=== PATIENT | male | born 1990 | race Caucasian/White ===

== ENCOUNTER 2021-05-16 15:52 | Emergency (ER) | payer MEDICAID ==
[~2021-05-16] VITALS: Ht 172.7 cm; Wt 70.0 kg
[2021-05-16 16:19] VITALS: BP 136/83
--- NOTE | 2021-05-16 16:31 | ED EENT ---
History of Present Illness General Chief Complaint: Dental Problems/Pain Stated Complaint: DENTAL PAIN Nursing Triage Note: Pt ambulatory into ER with complaint of Lower Left Dental Pain x4 days. Pt states that he is new here from [place], and hasn't established with a dentist. Pt rates pain at a 6/10. Source: patient Exam Limitations: no limitations History of Present Illness Date Seen by Provider: May 16, 2021 Time Seen by Provider: 16:20 Initial Comments This 30-year-old gentleman presents to the emergency room with about 4 days of dental pain on the left anterior mandibular area. He reports there was an abscess in this region that ruptured and drained. He is still having significant pain not adequately controlled by Tylenol and ibuprofen. He has also tried topical anesthetics such as the counter. He denies fever. He is moving to this area and does not yet have a dentist here. Allergies and Home Medications Patient Home Medication List Home Medication List Reviewed: Yes Amoxicillin (Amoxicillin) 500 Mg Capsule, 1,000 MG PO BID Prescribed by: ABHI CAMPO on 05/16/21 1632 Tramadol HCl (Ultram) 50 Mg Tablet, 50 MG PO Q6H PRN for PAIN-BREAKTHROUGH Prescribed by: ABHI CAMPO on 05/16/21 1633 Review of Systems Review of Systems Constitutional: no symptoms reported Eyes: No Symptoms Reported Ears: No Symptoms Reported Nose: no symptoms reported Mouth: see HPI Throat: no symptoms reported Respiratory: no symptoms reported Cardiovascular: no symptoms reported Gastrointestinal: no symptoms reported Musculoskeletal: no symptoms reported Neurological: No Symptoms Reported Past Pgtnsrr-Dcuumn-Ncvias Hx Patient Social History Tobacco Use?: No Use of E-Cig and/or Vaping dev: No Substance use?: No Alcohol Use?: No Pt feels they are or have been: No Immunizations Up To Date Influenza Vaccine Up-to-Date: No; Not Current Past Medical History Surgeries: No (None reported) Respiratory: No Cardiac: No Neurological: No Genitourinary: No Gastrointestinal: No Musculoskeletal: No Endocrine: No HEENT: No Cancer: No Psychosocial: No Physical Exam Vital Signs Vital Signs - First Documented 05/16/21 16:19 Temp 36.4 Pulse 81 Resp 16 B/P (MAP) 136/83 (100) Pulse Ox 99 O2 Delivery Room Air Height, Weight, BMI Height: '" Weight: lbs. oz. kg; 23.00 BMI Method: General Appearance: WD/WN, no apparent distress Eyes: bilateral eye normal inspection Ears: bilateral ear auricle normal, bilateral ear canal normal, bilateral ear TM normal Nose: normal inspection Mouth/Throat: pharynx normal, other (Multiple absent teeth. Tenderness and mild erythema of the gingiva surrounding the left lower incisors. No overt abscess visible or palpable.) Neck: normal inspection Cardiovascular: regular rate, rhythm, no edema, no murmur Respiratory: lungs clear, normal breath sounds, no respiratory distress Neurologic/Psychiatric: alert, normal mood/affect, oriented x 3 Skin: normal color, warm/dry Progress/Results/Core Measures Results/Orders Vital Signs/I&O 05/16/21 16:19 Temp 36.4 Pulse 81 Resp 16 B/P (MAP) 136/83 (100) Pulse Ox 99 O2 Delivery Room Air Blood Pressure Mean: 100 Departure Impression Primary Impression: Pain, dental Disposition: 01 HOME, SELF-CARE Condition: Stable Departure-Patient Inst. Decision time for Depature: 16:26 Referrals: NO,LOCAL PHYSICIAN (PCP) Primary Care Physician Patient Instructions: Dental Pain (DC) Add. Discharge Instructions: For primary pain control you may take ibuprofen up to 600 mg every 6 hours and Tylenol (acetaminophen) up to 1000 mg every 6 hours as needed. Add Ultram (tramadol) as prescribed for pain not controlled by wdmo-sjg-kxjwlyv medications. Mercedes your teeth gently twice daily. Rinse with an antiseptic mouthwash such as Listerine if tolerated. Follow-up with your dentist as soon as possible. Complete your antibiotic as prescribed. Call with questions or concerns. Return to the ER if you have worsening symptoms. All discharge instructions reviewed with patient and/or family. Voiced understanding. Scripts Tramadol HCl (Ultram) 50 Mg Tablet 50 MG PO Q6H PRN for PAIN-BREAKTHROUGH, #10 TAB Prov: ABHI RAMOS MD 05/16/21 Amoxicillin (Amoxicillin) 500 Mg Capsule 1000 MG PO BID, #40 CAP 0 Refills Prov: ABHI RAMOS MD 05/16/21 ABHI RAMOS MD May 16, 2021 16:31
[2021-05-16] MEDS ORDERED: TRAM-42 PO (16:32)
[2021-05-16] MEDS ORDERED: AMOX500C2 PO (16:32)
== END 2021-05-16 16:38 | disposition home or self-care (01) ==
LOC: ER 15:55
DX: K08.89 Other specified disorders of teeth and supporting structures (principal)
CPT/HCPCS: 99282

== ENCOUNTER 2021-05-28 13:25 | Emergency (ER) | payer MEDICAID ==
[~2021-05-28] VITALS: Ht 172 cm; Wt 75.0 kg
[~2021-05-28 13:25] MED LIST: AMOX500C2 PO; TRAM-42 PO
--- NOTE | 2021-05-28 13:44 | ED EENT ---
History of Present Illness General Chief Complaint: Dental Problems/Pain Stated Complaint: ABCESS TOOTH Nursing Triage Note: PT STATES HE WAS SEEN HERE ABOUT A WEEK AGO FOR AN ABSCESS TOOTH, IS UNABLE TO TAKE THE PAIN MEDICATION DUE TO STOMACH PAIN, STATES HE IS TAKING THE ABX. Source: patient Exam Limitations: no limitations History of Present Illness Date Seen by Provider: May 28, 2021 Time Seen by Provider: 13:42 Initial Comments To ER with left lower anterior tooth pain. He was seen here about a week ago for the same and given tramadol and amoxicillin but denies improvement. States that the soonest he could be seen by dentist was [facility] on 15 June. Timing/Duration: abrupt Severity: moderate Location: dental Prearrival Treatment: no prearrival treatment Associated Symptoms: denies symptoms Allergies and Home Medications Patient Home Medication List Home Medication List Reviewed: Yes Amoxicillin (Amoxicillin) 500 Mg Capsule, 1,000 MG PO BID Prescribed by: ABHI CAMPO on 05/16/21 1632 Tramadol HCl (Ultram) 50 Mg Tablet, 50 MG PO Q6H PRN for PAIN-BREAKTHROUGH Prescribed by: ABHI CAMPO on 05/16/21 1633 Review of Systems Review of Systems Constitutional: see HPI Eyes: No Symptoms Reported Ears: No Symptoms Reported Nose: no symptoms reported Mouth: see HPI Throat: no symptoms reported Respiratory: no symptoms reported Cardiovascular: no symptoms reported Musculoskeletal: no symptoms reported Skin: no symptoms reported Past Krelvir-Ytqadn-Swftsh Hx Patient Social History Tobacco Use?: Yes Smoking Status: Never a Smoker Substance use?: No Alcohol Use?: No Past Medical History Surgeries: No (None reported) Respiratory: No Cardiac: No Neurological: No Genitourinary: No Gastrointestinal: No Musculoskeletal: No Endocrine: No HEENT: No Cancer: No Psychosocial: No Physical Exam Vital Signs Vital Signs - First Documented 05/28/21 13:31 Temp 36.4 Pulse 86 Resp 18 B/P (MAP) 131/62 (85) Pulse Ox 99 O2 Delivery Room Air Height, Weight, BMI Height: '" Weight: lbs. oz. kg; 25.00 BMI Method: General Appearance: WD/WN, no apparent distress Eyes: bilateral eye normal inspection, bilateral eye PERRL, bilateral eye EOMI Ears: bilateral ear auricle normal, bilateral ear canal normal, bilateral ear T M normal Mouth/Throat: normal mouth inspection, dental tenderness Neck: non-tender, full range of motion Respiratory: no respiratory distress, no accessory muscle use Gastrointestinal: normal bowel sounds, non tender Neurologic/Psychiatric: alert, normal mood/affect, oriented x 3 Skin: normal color, warm/dry Progress/Results/Core Measures Results/Orders Vital Signs/I&O 05/28/21 13:31 Temp 36.4 Pulse 86 Resp 18 B/P (MAP) 131/62 (85) Pulse Ox 99 O2 Delivery Room Air Blood Pressure Mean: 85 Departure Communication (Admissions) I did call [facility] to try to make an appointment for the patient and she states that she does not have any appointment she can make for follow-up at this time. She could put him on a wait list and call him if so meone cancels. Advised her I will just have the patient call back over the upcoming days. Impression Primary Impression: Pain, dental Disposition: HOME, SELF-CARE Condition: Stable Departure-Patient Inst. Decision time for Depature: 13:45 Referrals: NO,LOCAL PHYSICIAN (PCP/Family) Primary Care Physician Patient Instructions: Dental Pain ED Add. Discharge Instructions: 1. Pain medication and antibiotic as directed. All discharge instructions reviewed with patient and/or family. Voiced understanding. Scripts Naproxen (Naprosyn) 500 Mg Tablet 500 MG PO BID PRN for PAIN-MODERATE (5-7), #30 TAB 0 Refills Prov: TONI GARCIA APRN 05/28/21 Hydrocodone/Acetaminophen (Hydrocodone-Acetamin 5-325 mg) 1 Each Tablet 1 TAB PO Q4H PRN for PAIN-MODERATE (5-7), #10 TAB Prov: TONI GARCIA APRN 05/28/21 Clindamycin HCl (Clindamycin HCl) 300 Mg Capsule 300 MG PO TID, #21 CAP Prov: TONI GARCIA APRN 05/28/21 TONI GARCIA APRN May 28, 2021 13:44
[2021-05-28] MEDS ORDERED: NAPR-1071 PO (13:46)
[2021-05-28] MEDS ORDERED: ACHD5005 PO (13:46)
[2021-05-28] MEDS ORDERED: CLIN-144 PO (13:46)
[2021-05-28 13:51] VITALS: BP 131/62
== END 2021-05-28 13:51 | disposition home or self-care (01) ==
LOC: EDUNIT# 13:25 → ER 13:26
DX: K08.89 Other specified disorders of teeth and supporting structures (principal)
CPT/HCPCS: 99282

== ENCOUNTER 2021-06-12 01:27 | Emergency (ER) | payer MEDICAID ==
[~2021-06-12] VITALS: Ht 170 cm; Wt 75.0 kg
[~2021-06-12 01:27] MED LIST changes: +ACHD5005 PO; +CLIN-144 PO; +NAPR-1071 PO
[2021-06-12] MEDS ORDERED: ORPH100T PO (02:04)
[2021-06-12] MEDS ORDERED: MELO15TA14 PO (02:04)
--- NOTE | 2021-06-12 02:04 | ED Back Pain ---
General Chief Complaint: Back Problems Stated Complaint: MID BACK PAIN Allergies and Home Medications Patient Home Medication List Amoxicillin (Amoxicillin) 500 Mg Capsule, 1,000 MG PO BID Prescribed by: ABHI CAMPO on 05/16/21 1632 Clindamycin HCl (Clindamycin HCl) 300 Mg Capsule, 300 MG PO TID Prescribed by: TONI GARCIA on 05/28/21 1346 Hydrocodone/Acetaminophen (Hydrocodone-Acetamin 5-325 mg) 1 Each Tablet, 1 TAB PO Q4H PRN for PAIN-MODERATE (5-7) Prescribed by: TONI GARCIA on 05/28/21 1347 Naproxen (Naprosyn) 500 Mg Tablet, 500 MG PO BID PRN for PAIN-MODERATE (5-7) Prescribed by: TONI GARCIA on 05/28/21 1346 Tramadol HCl (Ultram) 50 Mg Tablet, 50 MG PO Q6H PRN for PAIN-BREAKTHROUGH Prescribed by: ABHI CAMPO on 05/16/21 1633 Past Qvakazw-Skblxs-Xqecbu Hx Past Medical History Surgeries: No (None reported) Respiratory: No Cardiac: No Neurological: No Genitourinary: No Gastrointestinal: No Musculoskeletal: No Endocrine: No HEENT: No Cancer: No Psychosocial: No Physical Exam Vital Signs Capillary Refill : Height, Weight, BMI Height: '" Weight: lbs. oz. kg; 25.00 BMI Method: Departure Impression Primary Impression: MID AND UPPER BACK PAIN Disposition: 01 HOME, SELF-CARE Condition: Stable Departure-Patient Inst. Decision time for Depature: 02:02 Referrals: [facility] (PCP/Family) Primary Care Physician Patient Instructions: Upper Back Pain (DC) Add. Discharge Instructions: ALTERNATE ICE AND HEAT TO SORE AREA AT 20 MINUTE INTERVALS STOP ALL PREVIOUSLY PRESCRIBED MEDICATIONS FOLLOW UP WITH [facility] IN A FEW DAYS FOR FURTHER CARE All discharge instructions reviewed with patient and/or family. Voiced understanding. Scripts Orphenadrine Citrate (Orphenadrine Citrate) 100 Mg Tablet.er 100 MG PO TID, #15 TAB Prov: BERTRAND MARTINEZ DO 06/12/21 Meloxicam (Mobic) 15 Mg Tablet 15 MG PO DAILY, #10 TAB Prov: BERTRAND MARTINEZ DO 06/12/21 BERTRAND MARTINEZ DO Jun 12, 2021 02:04
[2021-06-12 02:18] VITALS: BP 134/80
== END 2021-06-12 02:18 | disposition home or self-care (01) ==
LOC: EDUNIT# 01:27 → ER 01:32
DX: M54.6 Pain in thoracic spine (principal)
CPT/HCPCS: 99281

== ENCOUNTER 2021-09-24 19:20 | Emergency (ER) | payer MEDICAID ==
[~2021-09-24] VITALS: Ht 170 cm; Wt 70.0 kg
[~2021-09-24 19:20] MED LIST changes: +MELO15TA14 PO; +ORPH100T PO
[2021-09-24] MEDS ORDERED: NAPR-1071 PO (19:39)
[2021-09-24] MEDS ORDERED: AMOX500C2 PO (19:39)
--- NOTE | 2021-09-24 19:39 | ED EENT ---
History of Present Illness General Chief Complaint: Dental Problems/Pain Stated Complaint: TOOTHACHE Source: patient Exam Limitations: no limitations History of Present Illness Date Seen by Provider: Sep 24, 2021 Time Seen by Provider: 19:36 Initial Comments To ER with right lower dental pain for 3 months. Timing/Duration: gradual Severity: moderate Location: mouth, dental Prearrival Treatment: no prearrival treatment Associated Symptoms: tooth pain Allergies and Home Medications Allergies Coded Allergies: No Known Drug Allergies (Unverified , 06/12/21) Patient Home Medication List Home Medication List Reviewed: Yes Amoxicillin (Amoxicillin) 500 Mg Capsule, 1,000 MG PO BID Prescribed by: ABHI CAMPO on 05/16/21 1632 Clindamycin HCl (Clindamycin HCl) 300 Mg Capsule, 300 MG PO TID Prescribed by: TONI GARCIA on 05/28/21 1346 Hydrocodone/Acetaminophen (Hydrocodone-Acetamin 5-325 mg) 1 Each Tablet, 1 TAB PO Q4H PRN for PAIN-MODERATE (5-7) Prescribed by: TONI GARCIA on 05/28/21 1347 Meloxicam (Mobic) 15 Mg Tablet, 15 MG PO DAILY Prescribed by: BERTRAND MARTINEZ on 06/12/21 0204 Naproxen (Naprosyn) 500 Mg Tablet, 500 MG PO BID PRN for PAIN-MODERATE (5-7) Prescribed by: TONI GARCIA on 05/28/21 1346 Orphenadrine Citrate (Orphenadrine Citrate) 100 Mg Tablet.er, 100 MG PO TID Prescribed by: BERTRAND MARTINEZ on 06/12/21 0204 Tramadol HCl (Ultram) 50 Mg Tablet, 50 MG PO Q6H PRN for PAIN-BREAKTHROUGH Prescribed by: ABHI CAMPO on 05/16/21 1633 Review of Systems Review of Systems Constitutional: see HPI Eyes: No Symptoms Reported Ears: No Symptoms Reported Nose: no symptoms reported Mouth: see HPI Throat: no symptoms reported Respiratory: no symptoms reported Cardiovascular: no symptoms reported Musculoskeletal: no symptoms reported Skin: no symptoms reported Past Sfpyuwp-Xylgpw-Dnlzyk Hx Past Medical History Surgeries: Yes Tonsillectomy Respiratory: No Cardiac: No Neurological: No Genitourinary: No Gastrointestinal: No Musculoskeletal: Yes (OCCASIONAL BACK PAIN ) Endocrine: No HEENT: No Cancer: No Psychosocial: No Physical Exam Height, Weight, BMI Height: '" Weight: lbs. oz. kg; 25.00 BMI Method: General Appearance: WD/WN, no apparent distress Eyes: bilateral eye normal inspection, bilateral eye PERRL, bilateral eye EOMI Ears: bilateral ear auricle normal, bilateral ear canal normal, bilateral ear TM normal Mouth/Throat: No mandibular swelling, No tonsillar swelling, No trismus Neck: non-tender, full range of motion, lymphadenopathy (R), lymphadenopathy (L) (Minimal bilateral anterior cervical chain lymphadenopathy but no submandibular lymphadenopathy) Cardiovascular: regular rate, rhythm, no murmur Respiratory: no respiratory distress, no accessory muscle use Gastrointestinal: normal bowel sounds, non tender Neurologic/Psychiatric: alert, normal mood/affect, oriented x 3 Skin: normal color, warm/dry Departure Communication (Admissions) Tenderness to palpation at tooth #28 though there is no gingival buccal swelling or fluctuance. I did offer him an inferior alveolar nerve block which he declined. Impression Primary Impression: Pain, dental Disposition: HOME, SELF-CARE Condition: Stable Departure-Patient Inst. Decision time for Depature: 19:38 Referrals: [facility] [place] Primary Care Physician Patient Instructions: Dental Pain (DC) Add. Discharge Instructions: 1. Follow-up with your dentist next week. Antibiotic as directed. Return to ER for any swelling or other concerns. Scripts Naproxen (Naprosyn) 500 Mg Tablet 500 MG PO BID PRN for PAIN-MODERATE (5-7), #30 TAB 0 Refills Prov: TONI GARCIA APRN 09/24/21 Amoxicillin (Amoxicillin) 500 Mg Capsule 500 MG PO TID, #21 CAP 0 Refills Prov: TONI GARCIA APRN 09/24/21 Images Mouth/Nose 1 - Tenderness TONI GARICA APRN Sep 24, 2021 19:39
[2021-09-24 19:44] VITALS: BP 133/80
== END 2021-09-24 19:44 | disposition home or self-care (01) ==
LOC: EDUNIT# 19:20 → ER 19:21
DX: K08.89 Other specified disorders of teeth and supporting structures (principal)
CPT/HCPCS: 99282

== ENCOUNTER 2021-10-01 20:59 | Emergency (ER) | payer MEDICAID ==
[~2021-10-01] VITALS: Ht 170.2 cm; Wt 68.0 kg
[2021-10-01 21:08] VITALS: BP 117/69
[2021-10-01] MEDS ORDERED: KETO10TA PO (21:35)
[2021-10-01] MEDS ORDERED: CLIN-144 PO (21:35)
[2021-10-01] MEDS ORDERED: LIDO20SO23 MM (21:35)
--- NOTE | 2021-10-01 21:35 | ED EENT ---
History of Present Illness General Chief Complaint: Dental Problems/Pain Stated Complaint: DENTAL PAIN Nursing Triage Note: PT AMB TO FT 2 W C/O RIGHT LOWER DENTAL PAIN X3 MONTHS. PT REPORTS HE NEEDS A ROOT CANAL, CURRENTLY ON [facility] WA[facility]. PT [id number]. Source: patient History of Present Illness Date Seen by Provider: Oct 01, 2021 Time Seen by Provider: 21:25 Initial Comments PT ARRIVES VIA POV FROM HOME C/O DENTAL PAIN TO RIGHT LOWER MOLAR AREA PT HAS HAD PAIN FOR MANY MONTHS--CLAIMS HE IS ON A "LIST" AT [facility] FOR A ROOT CANAL "FOR 3 MONTHS" , BUT DOES NOT ACTUALLY HAVE AN APPOINTMENT HAS NOT ATTEMPTED TO FOLLOW UP WITH THEM AT ANY TIME RECENTLY--CLAIMS HE WAS AT [facility] 2 MONTHS AGO FOR A FILLING ON A TOOTH ON THE LEFT LOWER MOLAR AREA--HE HAS NOT ATTEMPTED TO CONTACT THEM ANY TIME RECENTLY FOR THIS CURRENT COMPLAINT ON THE RIGHT LOWER MOLAR AREA NO SWELLING TO FACE/JAW NO FEVER SEEN HERE 09/24/21 FOR SAME, WAS PRESCRIBED AMOXIL AND NAPROXEN, STATES HE HAS NOT TAKEN ANY "FOR A COUPLE OF DAYS" BECAUSE IT UPSETS HIS STOMACH. STATES HE HAS NOT TAKEN ANYTHING ELSE FOR PAIN--NOT TRIED ANY OTC MEDICATIONS OR TOPICAL PRODUCTS FOR DENTAL PAIN. HOWEVER, PER MED RECONCILIATION, THERE IS NO RECORD THAT THESE PRESCRIPTIONS WERE FILLED ANYWHERE. OF NOTE, PT DID FILL RX'S FOR HYDROCODONE AND METHOCARBAMOL ON 09/27/[address] MCADAMS, ER PHYSICIAN AT [facility] IN [place], [place] PER MED RECONCILIATION, PT HAS BEEN PRESCRIBED MULTIPLE PAIN MEDICATIONS BY MULTIPLE PROVIDERS AT MULTIPLE PHARMACIES--HERE AND IN [facility] AREA IN RECENT MONTHS. THIS IS PT'S 5TH VISIT HERE SINCE HIS FIRST VISIT 05/16/21--ALL FOR DENTAL PAIN, EXCEPT ONE FOR BACK PAIN COMPLAINT [facility]ALSO A PATIENT AT [facility] IN [place], [place] DENTAL-[facility] Allergies and Home Medications Allergies Coded Allergies: No Known Drug Allergies (Unverified , 06/12/21) Patient Home Medication List Amoxicillin (Amoxicillin) 500 Mg Capsule, 1,000 MG PO BID Prescribed by: ABHI CAMPO on 05/16/21 1632 Amoxicillin (Amoxicillin) 500 Mg Capsule, 500 MG PO TID Prescribed by: TONI GARCIA on 09/24/219 Clindamycin HCl (Clindamycin HCl) 300 Mg Capsule, 300 MG PO TID Prescribed by: TONI GARCIA on 05/28/21 134 Clindamycin HCl (Clindamycin HCl) 300 Mg Capsule, 300 MG PO TID Prescribed by: BERTRAND MARTINEZ on 10/01/212134 Hydrocodone/Acetaminophen (Hydrocodone-Acetamin 5-325 mg) 1 Each Tablet, 1 TAB PO Q4H PRN for PAIN-MODERATE (5-7) Prescribed by: TONI GARCIA on 05/28/21 134 Ketorolac Tromethamine (Ketorolac Tromethamine) 10 Mg Tablet, 10 MG PO Q6H Prescribed by: BERTRAND MARTINEZ on 10/01/212134 Lidocaine HCl (Lidocaine HCl Viscous) 15 Ml Solution, 1-2 ML MM [id number] Prescribed by: BERTRAND MARTINEZ on 10/01/212134 Meloxicam (Mobic) 15 Mg Tablet, 15 MG PO DAILY Prescribed by: BERTRAND MARTINEZ on 06/12/21 020 Naproxen (Naprosyn) 500 Mg Tablet, 500 MG PO BID PRN for PAIN-MODERATE (5-7) Prescribed by: TONI GARCIA on 05/28/21 134 Naproxen (Naprosyn) 500 Mg Tablet, 500 MG PO BID PRN for PAIN-MODERATE (5-7) Prescribed by: TONI GARCIA on 09/24/211938 Orphenadrine Citrate (Orphenadrine Citrate) 100 Mg Tablet.er, 100 MG PO TID Prescribed by: BERTRAND MARTINEZ on 06/12/21 020 Tramadol HCl (Ultram) 50 Mg Tablet, 50 MG PO Q6H PRN for PAIN-BREAKTHROUGH Prescribed by: ABHI CAMPO on 05/16/21 1633 Review of Systems Review of Systems Constitutional: no symptoms reported Mouth: see HPI Neurological: No Symptoms Reported Past Jpcaxyq-Ovpctj-Ozcufj Hx Patient Social History Tobacco Use?: No Use of E-Cig and/or Vaping dev: No Substance use?: No Alcohol Use?: No Immunizations Up To Date Influenza Vaccine Up-to-Date: No; Not Current First/Initial COVID19 Vaccinat: NONE Second COVID19 Vaccination Darrian: NONE Third COVID19 Vaccination Date: NONE COVID19 Vaccine Hand Etcher: NONE Past Medical History Surgery/Hospitalization HX: NONE Surgeries: Yes Tonsillectomy Respiratory: No Cardiac: No Neurological: No Genitourinary: No Gastrointestinal: No Musculoskeletal: Yes (OCCASIONAL BACK PAIN ) Endocrine: No HEENT: Yes (DENTAL ISSUES) Cancer: No Psychosocial: No Physical Exam Vital Signs Vital Signs - First Documented 10/01/21 21:08 Temp 36.8 Pulse 70 Resp 20 B/P (MAP) 117/69 (85) Pulse Ox 100 O2 Delivery Room Air Height, Weight, BMI Height: '" Weight: lbs. oz. kg; 23.00 BMI Method: General Appearance: WD/WN, no apparent distress, other (DOES NOT APPEAR TO BE IN ANY DISCOMFORT OR DISTRESS, TEXTING/PLAYING ON PHONE) Mouth/Throat: other (MULITPLE MISSING TEETH AND SEVERAL REMAINING TEETH WITH DECAY. RIGHT LOWER SECOND PREMOLAR/TOOTH #29 WITH TENDERNESS, BUT NO OBVIOUS DECAY, SLIGHT ADJACENT GUM SWELLING AND ERYTHEMA. NO FLUCTUANCE. NO EVIDENCE OF ABSCESS. NO FACIAL SWELLING. ) Neck: non-tender, normal inspection; No lymphadenopathy (R), No lymphadenopathy (L) Cardiovascular: regular rate, rhythm Respiratory: normal breath sounds Neurologic/Psychiatric: no motor/sensory deficits, alert, normal mood/affect, oriented x 3 Skin: normal color, warm/dry Progress/Results/Core Measures Results/Orders My Orders Orders - BERTRAND MARTINEZ DO Lidocaine 2% Viscous 15 Ml (Xylocaine Vi (10/01/21 21:45) Clindamycin Capsule (Cleocin Capsule) (10/01/21 21:45) Vital Signs/I&O 10/01/21 21:08 Temp 36.8 Pulse 70 Resp 20 B/P (MAP) 117/69 (85) Pulse Ox 100 O2 Delivery Room Air Blood Pressure Mean: 85 Departure Impression Primary Impression: Pain, dental Disposition: 01 HOME, SELF-CARE Condition: Stable Departure-Patient Inst. Decision time for Depature: 21:33 Referrals: [facility] (PCP/Family) Primary Care Physician Patient Instructions: Dental Pain (DC) Add. Discharge Instructions: FOLLOW UP WITH [facility] NEXT WEEK FOR FURTHER CARE--CALL ON MONDAY MORNING TO MAKE AN APPOINTMENT OR YOU MAY GO TO WALK IN CLINIC All discharge instructions reviewed with patient and/or family. Voiced understanding. Scripts Ketorolac Tromethamine (Ketorolac Tromethamine) 10 Mg Tablet 10 MG PO Q6H for Pain, #15 TAB Prov: BERTRAND MARTINEZ DO 10/01/21 Lidocaine HCl (Lidocaine HCl Viscous) 15 Ml Solution 1-2 ML MM [id number], #120 ML Prov: BERTRAND MARTINEZ DO 10/01/21 Clindamycin HCl (Clindamycin HCl) 300 Mg Capsule 300 MG PO TID for 10 Days, #30 CAP Prov: BERTRAND MARTINEZ DO 10/01/21 BERTRAND MARTINEZ DO Oct 01, 2021 21:35
[2021-10-01] MEDS ORDERED: CLINDAMYCIN 150 MG (CLEOCIN) CAP PO ONE (21:45)
[2021-10-01] MEDS ORDERED: LIDOCAINE 2% VISCOUS 15 ML UDC MM ONE (21:45)
== END 2021-10-01 21:47 | disposition home or self-care (01) ==
LOC: EDUNIT# 20:59 → ER 21:01
DX: K02.9 Dental caries, unspecified (principal)
CPT/HCPCS: 99282

== ENCOUNTER 2021-12-18 03:33 | Emergency (ER) | payer MEDICAID ==
[~2021-12-18] VITALS: Ht 173 cm; Wt 68.9 kg
[~2021-12-18 03:33] MED LIST changes: +KETO10TA PO; +LIDO20SO23 MM
[2021-12-18 03:48] VITALS: BP 122/76
== END 2021-12-18 05:47 | disposition left against medical advice (07) ==
LOC: EDUNIT# 03:33 → ER 03:36
DX: M54.50 Low back pain, unspecified (principal); X58.XXXA Exposure to other specified factors, initial encounter; Y92.59 Other trade areas as the place of occurrence of the external cause; Y99.0 Civilian activity done for income or pay
CPT/HCPCS: 99285